=== PATIENT | male | born 1955 | race Caucasian/White ===

== ENCOUNTER → 2022-10-07 11:00 | Outpatient (BNVA) | payer BC, SELFPAY | PROVIDERS: Visit Provider Family Medicine | DX: M25.562 Pain in left knee (principal) | CPT/HCPCS: 73562 ==

== ENCOUNTER 2022-10-25 06:00 | Outpatient (RCR) | payer MEDICARE, OTHER, SELFPAY | END 2022-11-22 23:59 | disposition home or self-care (01) | LOC: GPT 06:00 | PROVIDERS: Visit Provider Family Medicine | DX: M25.569 Pain in unspecified knee (principal) | CPT/HCPCS: 97110; 97112; 97140; 97161 ==

== ENCOUNTER → 2023-02-20 09:13 | Outpatient (BNVA) | payer MEDICARE, OTHER, SELFPAY | PROVIDERS: PCP Family Medicine; Visit Provider Family Medicine | DX: M25.561 Pain in right knee (principal) | CPT/HCPCS: 73562 ==

== ENCOUNTER 2023-03-10 15:37 | Outpatient (CLI) | payer MEDICARE, OTHER, SELFPAY ==
--- NOTE | 2023-03-10 16:00 | MR_ITS ---
WS: [id number] MRI RIGHT KNEE NONCONTRAST TECHNIQUE: Axial PD, coronal PD fat sat, coronal PD, sagittal PD, and sagittal PD fat-sat images obta ined. CLINICAL INFORMATION: M25.361 - Other instability, right knee COMPARISON: None. FINDINGS: Moderate tricompartmental arthritis RIGHT knee. Hypertrophic patella. Distal quadriceps and patella t endons are intact. Prepatellar and infrapatellar soft tissue edema. No significant joint effusion. No rmal ACL and PCL. Mild peripheral extrusion of the lateral meniscus. Tear of the posterior horn later al meniscus at the meniscal root. Blunting of the posterior horn. Mild peripheral extrusion of the la teral meniscus. Medial meniscus appears intact. Moderate chondromalacia patella. No subchondral edema. Normal medial and lateral patellar retinaculum . Tiny joint effusion. Normal lateral collateral ligament. Normal medial collateral ligament. Normal popliteal fossa. Small lobulated popliteal cyst measuring 0.9 x 3.5 cm MR/MR knee RT wo con* [id number] IMPRESSION: 1. Moderate tricompartmental arthritis. 2. Anterior and posterior cruciate ligaments are intact. 3. Tear of the posterior horn lateral meniscus extending to the meniscal root with blunting of the posterior horn. Mild peripheral extrusion of the lateral m eniscus. 4. Moderate chondromalacia patella. 5. Medial and lateral collateral ligaments appear intact. 6. Small lobulated popliteal cyst as described above. Outbridge grading: grade III: partial-thickness cartilage loss with focal ulcer ation
== END 2023-03-10 15:38 | disposition home or self-care (01) ==
PROVIDERS: PCP Family Medicine; Visit Provider Family Medicine
DX: M25.361 Other instability, right knee (principal); M13.861 Other specified arthritis, right knee; S83.281A Other tear of lateral meniscus, current injury, right knee, initial encounter; X58.XXXA Exposure to other specified factors, initial encounter; M22.41 Chondromalacia patellae, right knee; M71.21 Synovial cyst of popliteal space [Baker], right knee
CPT/HCPCS: 73721

== ENCOUNTER → 2023-04-23 12:58 | Outpatient (BNVA) | payer MEDICARE, OTHER, SELFPAY | PROVIDERS: PCP Family Medicine; Referring Provider Family Medicine; Visit Provider Specialist | DX: S83.281A Other tear of lateral meniscus, current injury, right knee, initial encounter; X58.XXXA Exposure to other specified factors, initial encounter | CPT/HCPCS: 73560; 73565; 99204 ==

== ENCOUNTER 2023-05-30 12:14 | Outpatient (CLI) | payer MEDICARE, OTHER, SELFPAY ==
--- NOTE | 2023-05-30 12:29 | MR_ITS ---
WS: [id number] MRI RIGHT knee, post arthrogram. HISTORY: Knee locking and pain for several years. COMPARISON: Prior noncontrast MRI 03/10/2023. Post arthrogram imaging is submitted. There is good contrast distending the joint space. Patellofemoral joint space: Very mild narrowing the patellofemoral joint space. There is no contrast extending into the cartilage. No subluxation or displacement of the patella. Medial compartment: Mild narrowing of the medial compartment. Mild intrasubstance degeneration. No te ars are identified. Lateral compartment: Mild narrowing of the lateral compartment. There is an abnormal shape and config uration of the posterior meniscus. There is a complex tear with blunting of the free edge. Tear exten ds into the peripheral aspect of the meniscus and towards the meniscal root. There is a lobulated sof t tissue component extending superiorly posterior to the femoral condyle which may be a loose fragmen t. There is an additional ovoid loose body measuring 5 x 10 mm. This is within the injected contrast pos terior to the PCL and adjacent to the medial posterior femoral condyle. This was not definitely seen on the prior study. This is probably a loose body and may be a meniscal fragment. No donor site for a n osteochondral fragment identified. IMPRESSION: 1. Complex tear posterior horn lateral meniscus. There is a lobulated component of the meniscus which is inseparable to the main body of meniscus extending posterior superior which may be a loose fragme nt or flipped meniscal segment. 2. Additional loose body surrounded by intra-articular contrast injection measuring 5 x 10 mm posteri or to the PCL and adjacent to the intercondylar notch posteriorly. Meniscal fragment is suspected. No donor site is identified from the cartilage.
--- NOTE | 2023-05-30 13:00 | IR_ITS ---
WS: [id number] RIGHT KNEE ARTHROGRAM (FLUOROSCOPY) RIGHT knee arthrogram was performed in fluoroscopy prior to MRI evaluation. HISTORY: Knee pain, meniscual tear COMPARISON: 05/30/2023 FLUOROSCOPY TIME: 0min [id number] # of spot films: 1 Procedure, risks and complications were explained to the patient. Complications include but not limit ed to bleeding, infection and contrast reaction. Current medications are reviewed. Skin is cleansed with ChloraPrep. Skin is anesthetized with 1% buffered lidocaine. 22-gauge needle is inserted into the patellofemoral joint space. Approximately 40 cc of gadolinium mixture injected wit hout complication. Patient will proceed to CT evaluation immediately. No complications were encountered. Patient is instructed to watch for post procedure infection or ble eding. Patient is also instructed to contact the radiology department with any concerns. IMPRESSION: Uncomplicated RIGHT knee joint injection prior to MRI arthrogram.
== END 2023-05-30 12:15 | disposition home or self-care (01) ==
LOC: RAD 12:15
PROVIDERS: PCP Family Medicine; Visit Provider Specialist
DX: S83.271A Complex tear of lateral meniscus, current injury, right knee, initial encounter (principal); X58.XXXA Exposure to other specified factors, initial encounter; M23.41 Loose body in knee, right knee
CPT/HCPCS: 27369; 73722; 77002

== ENCOUNTER → 2023-06-04 14:08 | Outpatient (BNVA) | payer MEDICARE, OTHER, SELFPAY | PROVIDERS: PCP Family Medicine; Visit Provider Specialist | DX: Z01.818 Encounter for other preprocedural examination (principal); S83.281A Other tear of lateral meniscus, current injury, right knee, initial encounter; M23.41 Loose body in knee, right knee; M25.361 Other instability, right knee; X58.XXXA Exposure to other specified factors, initial encounter | CPT/HCPCS: 99214 ==

== ENCOUNTER 2023-06-23 15:37 | Emergency (ER) | payer MEDICARE, OTHER, SELFPAY ==
[2023-06-23 15:44] VITALS: BP 137/86; PULSE 74; RESP 18; TEMP 36.5; O2SAT 99; BMI 32.5
[2023-06-23 15:49] VITALS: BP 140/78; PULSE 66; RESP 18; O2SAT 97
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
--- NOTE | 2023-06-23 16:02 | PC.PHAR ---
PT STS HE TAKES APPX 23 DIFFERENT SUPPLEMENTS BUT CAN NOT THINK OF ALL OF THEM RIGHT NOW
[2023-06-23] MEDS: ceFAZolin 1,000 MG in sodium chloride 0.9% (plus) 50 ML 100 MG IV (16:06)
[2023-06-23 16:10] LABS: Basophils # 0.1 10^3/uL (0.0-0.1); Basophils % 0.6 %; Eosinophils # 0.1 10^3/uL (0.0-0.8); Hematocrit 43.6 % (37-53); Lymphocytes # 1.6 10^3/uL (0.8-4.8); Lymphocytes % 17.5 %; Mean Corpuscular HGB Conc 35.3 g/dL (30-55); Mean Corpuscular Hemoglobin 32.4 pg (27-33); Mean Corpuscular Volume 91.6 fl (82-101); Mean Platelet Volume 10.4 fL (7.4-10.4); Monocytes # 0.6 10^3/uL (0.2-0.9); Monocytes % 6.4 %; Neutrophils # 6.64 10^3/uL (1.8-7.7); Neutrophils % 74.2 %; Nucleated Red Blood Cells % 0 %; Platelet Count 193 10^3/cmm (157-399); Red Blood Count 4.76 10^6/uL (3.85-5.65); Red Cell Distribution Width 12.7 % (12.1-15.1); White Blood Count 8.95 10^3/uL (3.29-11.43)
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
[2023-06-23 16:49] VITALS: BP 166/101; RESP 18; O2SAT 100
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
[2023-06-23 16:53] LABS: Albumin Level 4.1 g/dL (3.5-5.2); Alkaline Phosphatase 86 U/L (40-130); Blood Urea Nitrogen 12 mg/dL (8-23); Calcium 9.7 mg/dL (8.5-10.5); Carbon Dioxide 26 mmol/L (22-29); Chloride 103 mmol/L (98-107); Globulin 3.4 g/dL (1.3-4.6); Glomerular Filtration Rate 60.6 mL/min (90-130); Glucose 118 mg/dL (65-115); Osmolality Calculated 291 mOsm/kg (285-295); Sodium 140 mmol/L (136-145); Total Bilirubin 0.5 mg/dL (0.15-1.2); Total Protein 7.5 g/dL (6.6-8.7)
[2023-06-23 16:55] LABS: Alanine Aminotransferase 19 U/L (0-41); Anion Gap 15.6 (5-19); Aspartate Amino Transferase 26 U/L (0-40); Potassium 4.6 mmol/L (3.5-5.1)
[2023-06-23] MEDS: iohexol 350 mg/mL 500 mL Btl (per mL) IV (17:28)
[2023-06-23 18:00] VITALS: BP 152/99; RESP 18; O2SAT 100
[2023-06-23 18:59] VITALS: BP 135/88; PULSE 91; RESP 16; O2SAT 97
[2023-06-23 19:15] VITALS: BP 129/79; PULSE 91; RESP 16; O2SAT 97
== END 2023-06-23 19:35 | disposition home or self-care (01) ==
PROVIDERS: Family Medicine; Emergency Provider Emergency Medicine; PCP Family Medicine
DX: S51.011A Laceration without foreign body of right elbow, initial encounter (principal); W55.22XA Struck by cow, initial encounter; E11.9 Type 2 diabetes mellitus without complications; I10 Essential (primary) hypertension
CPT/HCPCS: 12004; 71260; 73080; 73206; 74177; 80053; 81000; 83036; 85025; 96365; 96375; 99285; 99291; J0690; Q9967

== ENCOUNTER → 2023-07-15 09:47 | Outpatient (BNVA) | payer MEDICARE, OTHER, SELFPAY | PROVIDERS: PCP Family Medicine; Referring Provider Nurse Practitioner Family; Visit Provider Surgery | DX: K46.9 Unspecified abdominal hernia without obstruction or gangrene (principal); S30.1XXA Contusion of abdominal wall, initial encounter; K43.9 Ventral hernia without obstruction or gangrene; X58.XXXA Exposure to other specified factors, initial encounter | CPT/HCPCS: 99204 ==

== ENCOUNTER → 2023-07-21 10:17 | Outpatient (BNVA) | payer MEDICARE, OTHER, SELFPAY | PROVIDERS: PCP Family Medicine; Visit Provider Nurse Practitioner | DX: S83.271D Complex tear of lateral meniscus, current injury, right knee, subsequent encounter (principal); M23.41 Loose body in knee, right knee; M25.361 Other instability, right knee; X58.XXXD Exposure to other specified factors, subsequent encounter | CPT/HCPCS: 99214 ==

== ENCOUNTER 2023-07-29 07:42 | Outpatient (CLI) | payer MEDICARE, OTHER, SELFPAY ==
[2023-07-29] MEDS: iohexol 350 mg/mL 500 mL Btl (per mL) PO (07:54)
[2023-07-29] MEDS: iohexol 350 mg/mL 500 mL Btl (per mL) IV (08:58)
--- NOTE | 2023-07-29 09:00 | CT_ITS ---
WS: [id number] CT ABDOMEN AND PELVIS WITH CONTRAST HISTORY: hernia, recent trauma. Persistent bulging. TECHNIQUE: Imaging performed of the abdomen and pelvis with IV contrast. Single phase imaging of the abdomen. Coronal and sagittal reformats are submitted. All CT scans at [facility] use at maxi st one of these dose optimization techniques: automated exposure control; mA and/or kV adjustment per patient size (includes targeted exams where dose is matched to clinical indication); or iterative re construction. IV CONTRAST: Omnipaque 350; 100 mL IV. Oral contrast: Yes. DLP: 836.57 mGy.cm COMPARISON: 06/23/2023 Lower thorax: Lung bases are clear. Heart is normal size. Small hiatal hernia. Liver/biliary system: Normal size with no intrahepatic dilatation. Gallbladder: Normal. No gallstones or wall thickening. No pericholecystic fluid. Pancreas: Normal size pancreas and pancreatic duct. No adjacent inflammation. Spleen: Normal size spleen. No mass or infarct. Adrenal glands: Normal. Right kidney: Normal. Left kidney: Normal. Aorta: Mild atherosclerosis. Lymphadenopathy: None. Free fluid: None. GI tract: Previously described contusion involving the transverse colon has resolved. Abdominal wall: There is a fluid collection extending obliquely through the anterior abdominal wall. Well-defined fluid collection measures 4.7 x 6.4 cm and extends obliquely through the anterior abdomi nal wall by 6.7 cm. This fluid collection is inseparable from the LEFT rectus muscle and does contact the midline linea alba. There is a fat/fluid level present. There is no adjacent inflammation. No co ntact of the peritoneal cavity is identified. This is at the site of the prior subcutaneous trauma. Pelvis: No free fluid or adenopathy within the pelvis. Bones: No destructive process. IMPRESSION: 1. Well encapsulated fluid collection with fat-fluid layer in the anterior abdominal wall abuts the LEFT rectus muscle. Fluid collection measures 4.7 x 6.4 x 6.7 cm. This is probably a sterile fluid co llection associated with encapsulated fat necrosis at the site of the prior trauma. No connection to the peritoneal cavity is evident. 2. Interval resolution of the contusion injury involving the transverse colon.
== END 2023-07-29 07:43 | disposition home or self-care (01) ==
LOC: RAD 07:42
PROVIDERS: PCP Family Medicine; Visit Provider Surgery
DX: K43.9 Ventral hernia without obstruction or gangrene (principal); K46.9 Unspecified abdominal hernia without obstruction or gangrene; S30.1XXA Contusion of abdominal wall, initial encounter; X58.XXXA Exposure to other specified factors, initial encounter
CPT/HCPCS: 74177; Q9967

== ENCOUNTER → 2023-08-01 08:58 | Outpatient (BNVA) | payer MEDICARE, OTHER, SELFPAY | PROVIDERS: PCP Family Medicine; Visit Provider Surgery | DX: Z09 Encounter for follow-up examination after completed treatment for conditions other than malignant neoplasm (principal) | CPT/HCPCS: 99213 ==

== ENCOUNTER → 2023-08-26 12:49 | Outpatient (BNVA) | payer MEDICARE, OTHER, SELFPAY | PROVIDERS: PCP Family Medicine; Visit Provider Nurse Practitioner | DX: Z01.818 Encounter for other preprocedural examination (principal); S83.271D Complex tear of lateral meniscus, current injury, right knee, subsequent encounter; M23.41 Loose body in knee, right knee; M25.361 Other instability, right knee; X58.XXXD Exposure to other specified factors, subsequent encounter | CPT/HCPCS: 80053; 85025; 99214 ==

== ENCOUNTER 2023-09-02 09:43 | Day surgery (SDC) | payer MEDICARE, OTHER, SELFPAY ==
[2023-09-02] VITALS (10 sets, daily range): BP systolic 132–164; BP diastolic 89–110; PULSE 64–72; RESP 10–24; TEMP 35.9–36.6; O2SAT 93–100; BMI 32.8
--- NOTE | 2023-09-02 10:01 | PC.NURSE ---
\pt. stated no pork or meds derived from pork for protestant beliefs. Gabapentin and celebrex both alerted to pork dirived so both canceled. pharmacy verified.
[2023-09-02] MEDS: acetaminophen 1,000 MG/100 ML PIGGYBACK 400 MG IV (10:30)
--- NOTE | 2023-09-02 11:15 | P.ANESASSM_ITS ---
Pre-Anesthetic Assessment Height/Weight: Height 1.83 m Weight 109.769 kg Temp Pulse Resp BP Pulse Ox O2 Del Method 96.7 F L 71 18 164/110 97 Room Air 09/02/23 10:18 09/02/23 10:18 09/02/23 10:18 09/02/23 10:18 09/02/23 10:18 09/02/23 10:18 Operation Date: 09/02/23 11:25 Proposed Procedures p Knee Arthroscopy w/ Menisectomy W/ Possible debridement(Right) - Kathryn Mesa MD Was Beta Roxann taken within 24 hours: N/A Was Clonidine taken within 24 hours: N/A Last intake: Intake Last Liquid Date 09/01/23 Last Liquid Time 19:00 Last Solid Date 09/01/23 Last Solid Time 19:00 Social No tobacco Exam alert and oriented x 3 Airway Submandibular: within normal limits Cervical ROM: within normal limits Mallampati: Class II History/ROS No significant history except as noted and No significant complaints CV/HEM Hypertension Metabolic Diabetes Mellitus T2DM Diet controlled Anesthetic Plan ASA status: 2 Anesthesia: General Risk of > 500 ml blood loss (7ml/kg in children): No Medications/Allergies Home Medications Medication Instructions Recorded Confirmed Last Taken Type amlodipine 5 mg-benazepril 20 mg 1 cap PO DAILY #90 caps 10/07/22 09/01/23 09/01/23 Rx capsule Allergies Allergy/AdvReac Type Severity Reaction Status Date / Time pork derived (porcine) Allergy Unknown Unknown Verified 09/02/23 10:07 Pork/Porcine Containing Allergy episcopal Verified 09/02/23 10:07 Products preferance [facility] Anesthesia Medical History Knee pain Diabetes Hypertension Social History Smoking and tobacco/nicotine status: never used tobacco/nicotine Alcohol intake: never Data Anesthesia Cardiac Studies: No Data to Display
--- NOTE | 2023-09-02 11:43 | P.HPUD_ITS ---
Surgery/Procedure H&P Update DATE OF PROCEDURE: September 02, 2023 DATE H&P PERFORMED: 08/26/23 H&P UPDATE INFORMATION: I have reviewed H&P completed within last 30 days, I have examined patient prior to procedure, No changes to prior documentation and H&P is in [facility] EMR on date indicated PRIMARY INDICATION FOR PROCEDURE: MRI 05/30/2023 IMPRESSION: 1. Complex tear posterior horn lateral meniscus. There is a lobulated component of the meniscus which is inseparable to the main body of meniscus extending posterior superior which may be a loose fragment or flipped meniscal segment. 2. Additional loose body surrounded by intra-articular contrast injection measuring 5 x 10 mm posterior to the PCL and adjacent to the intercondylar notch posteriorly. Meniscal fragment is suspected. No donor site is identified from the cartilage. PLANNED PROCEDURE: Operation Date: 09/02/23 11:25 Proposed Procedures p Knee Arthroscopy w/ Menisectomy W/ Possible debridement(Right) - Kathryn Mesa MD
[2023-09-02] MEDS: ceFAZolin 2,000 MG in sodium chloride 0.9% (plus) 50 ML 100 MG IV (13:16)
[2023-09-02] MEDS: morphine 4 mg/mL SDV 1 mL 8 MG XX (14:40)
[2023-09-02] MEDS: ROPivacaine 0.5% SDV 30 mL 150 MG INJECTION (14:40)
--- NOTE | 2023-09-02 15:24 | PM.OP ---
Operative Report Date of procedure: September 02, 2023 Pre-op diagnosis: Right knee lateral meniscal tear with loose body Post-op diagnosis: Right knee complex lateral meniscus tear with inner rim medial meniscal tear as well as loose body and primary osteoarthritis Procedure done: Right arthroscopic knee surgery with partial medial and lateral meniscectomies, chondroplasty, and debridement Specimens removed/disposition: Meniscal fragments disposed of Surgeon: Kathryn Mesa MD Vp Client Services: None Anesthesia: General (Per LMA, ASA 2) Estimated blood loss (mL): 5 Tourniquet time (min): 38 (At 250 mmHg) IV fluids (mL): 400 Complications: None Findings: Two large meniscal fragments as well as complex lateral meniscal tear and inner rim medial meniscal tear Condition: stable Disposition: PACU (Then return to same-day surgery for discharge to home) Brief History: This 68-year-old gentleman presented initially to my office for right knee pain. The pain was intermittent and occurred every 2 to 3 days. He had pain with certain activities and certain movements. He also complained of popping, catching, buckling, and giving way at times. On May 30, 2023, the patient had an MRI arthrogram which demonstrated complex tearing of the posterior lateral meniscus. There was also felt to be a loose fragment of meniscus and an additional loose body which was free-floating. Patient wished to proceed with arthroscopic intervention. Initially, surgery was scheduled for late 2022, however, the patient was working with an injured bull. The bull charged him and caught him in the abdomen and chest. Therefore, the patient's surgical procedure was delayed until this could be resolved. He presents today for arthroscopic knee surgery. Procedure: Patient was brought to the operating theater and after undergoing adequate general anesthesia per LMA, the patient's right lower extremity was prepped and draped in usual fashion utilizing DuraPrep. A tourniquet was placed high on the leg prior to prepping and draping. The tourniquet was elevated shortly after commencement of the surgical procedure to 250 mmHg. Total tourniquet time was 38 minutes. The tourniquet was elevated secondary to bleeding once the surgical procedure had begun. Prior to commencement of the surgical procedure, a surgical pause was performed. At the time of the surgical pause, we identified the site and side of surgery. We also confirm the patient's identity and appropriate and timely administration of preoperative antibiotics. Preoperative surgical markings were also visualized at this time. Standard arthroscopic portals were utilized including superolateral, inferomedial, and inferolateral portals. The examination commenced in the suprapatellar pouch area where the patient was noted to have chondromalacia of the patella with synovitis in the area. The arthroscope was then passed in the medial compartment where there was noted to be inner rim tearing of the posterior portion of the medial meniscus. There was also chondromalacia of the medial femoral condyle which was grade 2-3. There was synovitis anteriorly in the medial compartment as well. The arthroscope was then passed across the notch area where anterior cruciate ligament was visualized and found to be intact. The scope was passed into the lateral compartment with the knee in a [id number] position. Visualization was difficult secondary to significant synovitis and a displaced fragment of the meniscus into the anterior portion of the knee. Lateral meniscus was noted to have a tear involving nearly the entire posterior horn. This was addressed with a combination of basket forceps, a grasper, intra-articular shaver, and heat wand. There were 2 large fragments of meniscus which were separate from the meniscus upon entry. One of them was locked up in the posterior aspect of the knee behind the posterior cruciate ligament which was consistent with findings on the MRI arthrogram. The meniscus was shaved and basket forcep was utilized. The heat wand was used to further smooth the meniscus. Popliteus was visualized. Further palpation within the lateral compartment demonstrated no further pathology. Once lateral meniscus had been thus prepared it was palpated and found to be intact and not displaceable into the knee joint. Scope was then returned to the medial compartment where the inner rim of the medial meniscus was addressed with the intra-articular heat wand. The meniscus was palpated and found to be not displaceable into the knee joint. Chondroplasty was performed of the medial femoral condyle. The arthroscope was then returned to the patellofemoral joint where a synovectomy was performed. This synovectomy involved use of the intra-articular shaver as well as the heat wand. Once the patellofemoral joint had been addressed, the scope was passed back through the knee compartments to evaluate for other abnormalities. Finding none, attention was directed to closure. The knee was copiously irrigated and suctioned dry. Following this, each portal was closed with a simple suture followed by Dermabond and Tegaderm. Additionally, the knee was injected with 20 mL of half percent ropivacaine and 8 mg of morphine. Additional 10 mL of ropivacaine was placed about the portals. Sterile dressing was placed consisting of the Tegaderm followed by the Yohan wrap. Patient was returned to Recovery Room in satisfactory condition where he will be discharged home to follow-up with me in the office as scheduled. There were no complications and no specimens. Related Problem List Diagnoses (1) Tear of lateral meniscus of right knee: (2) Tear of medial meniscus of right knee: (3) Primary osteoarthritis of right knee:
--- NOTE | 2023-09-02 16:55 | ANE.PACU2 ---
Inpatient post-anesthesia follow up: Airway intact: Yes Vital signs: Temperature 97.8 F Pulse Rate 69 Respiratory Rate 18 Blood Pressure 160/99 Pulse Oximetry 98 Oxygen Delivery Me thod Room Air Oxygen Flow Rate 8 Fraction of Inspir ed Oxygen Hydration adequate: Yes Nausea and vomiting: No Pain level: 3 Mental status: Baseline
== END 2023-09-02 16:11 | disposition home or self-care (01) ==
PROVIDERS: PCP Family Medicine; Visit Provider Specialist
PROC: (CPT 29870; principal; 2023-09-02 11:25)
DX: S83.281A Other tear of lateral meniscus, current injury, right knee, initial encounter (principal); X58.XXXA Exposure to other specified factors, initial encounter; M23.41 Loose body in knee, right knee; I10 Essential (primary) hypertension; E11.9 Type 2 diabetes mellitus without complications
CPT/HCPCS: 29880; J0131; J0690; J1100; J1885; J2270; J2405; J2704; J2795; J3010

== ENCOUNTER → 2023-09-23 09:46 | Outpatient (BNVA) | payer MEDICARE, OTHER, SELFPAY | PROVIDERS: PCP Family Medicine; Visit Provider Nurse Practitioner Family | DX: M89.8X2 Other specified disorders of bone, upper arm (principal); M25.511 Pain in right shoulder | CPT/HCPCS: 73060 ==

== ENCOUNTER → 2023-09-24 10:44 | Outpatient (BNVA) | payer MEDICARE, OTHER, SELFPAY | PROVIDERS: PCP Family Medicine; Visit Provider Nurse Practitioner | DX: Z98.890 Other specified postprocedural states (principal); S83.271D Complex tear of lateral meniscus, current injury, right knee, subsequent encounter; X58.XXXD Exposure to other specified factors, subsequent encounter | CPT/HCPCS: 99024 ==

== ENCOUNTER → 2023-10-28 09:49 | Outpatient (BNVA) | payer MEDICARE, OTHER, SELFPAY | PROVIDERS: Visit Provider Surgery | DX: S30.1XXA Contusion of abdominal wall, initial encounter (principal); X58.XXXA Exposure to other specified factors, initial encounter | CPT/HCPCS: 99214 ==

== ENCOUNTER 2023-10-29 06:00 | Outpatient (RCR) | payer MEDICARE, OTHER, SELFPAY | END 2023-11-23 23:59 | disposition home or self-care (01) | LOC: GPT 06:00 | PROVIDERS: Visit Provider Nurse Practitioner Family | DX: S46.111D Strain of muscle, fascia and tendon of long head of biceps, right arm, subsequent encounter (principal); X58.XXXD Exposure to other specified factors, subsequent encounter | CPT/HCPCS: 97110; 97112; 97140; 97162 ==

== ENCOUNTER 2023-11-24 06:00 | Outpatient (RCR) | payer MEDICARE, OTHER, SELFPAY | END 2023-12-23 23:59 | disposition home or self-care (01) | LOC: GPT 06:00 | PROVIDERS: Visit Provider Nurse Practitioner Family | DX: S46.111D Strain of muscle, fascia and tendon of long head of biceps, right arm, subsequent encounter (principal); X58.XXXD Exposure to other specified factors, subsequent encounter | CPT/HCPCS: 97110 ==

== ENCOUNTER 2023-12-17 11:49 | Outpatient (CLI) | payer MEDICARE, OTHER, SELFPAY ==
--- NOTE | 2023-12-17 12:15 | MR_ITS ---
WS: [id number] MRI OF THE HUMERUS WITHOUT GADOLINIUM ENHANCEMENT. INDICATION: Muscle strain TECHNIQUE: Axial T2, axial PD, coronal STIR, coronal T1, and sagittal STIR imaging FINDINGS: Moderate degenerative arthritis AC joint with mild edema. Subacromial spurring. Narrowing o f the subacromial space. Moderate degenerative narrowing glenohumeral articulation. High-grade comple te tear distal supraspinatus. Supraspinatus tendon appears retracted to the glenohumeral joint. Infra spinatus appears intact. Small intrasubstance tear in the infraspinatus musculotendinous junction. Normal teres minor. Chronic appearing tear of the transverse ligament subscapularis. Medial dislocati on of the biceps tendon from the bicipital groove. Subcoracoid effusion. Probable Hill-Sachs lesion. No acute appearing edema. Normal bone marrow signal in the humerus. No acute fractures. Fluid and michael ma along the biceps tendon sheath. Suspected partial tear of the intra-articular biceps tendon althou gh incompletely evaluated on the humerus study. Distal biceps tendon is not included on this study. Recommend elbow MRI if concern for distal biceps brachii tear. IMPRESSION: 1. Moderate joint arthritis of the AC joint with narrowing of the subacromial space. Subacromial sub deltoid fluid. 2. High-grade complete tear of the supraspinatus with retraction to the level of the glenohumeral yulissa int. 3. Tear of the transverse ligament subscapularis with medial dislocation of the biceps tendon from t he bicipital groove. Fluid along the biceps tendon sheath. If distal biceps brachii pain recommend MR I of the elbow. 4. Probable small Hill-Sachs lesion although dedicated shoulder MRI not performed. 5. Increased signal intra-articular biceps tendon suggestive of partial tear. This is incompletely evaluated and recommend shoulder MRI 6. Recommend further evaluation with dedicated shoulder MRI.
== END 2023-12-17 11:50 | disposition home or self-care (01) ==
PROVIDERS: PCP Family Medicine; Visit Provider Nurse Practitioner Family
DX: S46.211A Strain of muscle, fascia and tendon of other parts of biceps, right arm, initial encounter (principal); M75.121 Complete rotator cuff tear or rupture of right shoulder, not specified as traumatic; M19.011 Primary osteoarthritis, right shoulder; W19.XXXA Unspecified fall, initial encounter
CPT/HCPCS: 73218

== ENCOUNTER → 2024-02-20 10:10 | Outpatient (BNVA) | payer MEDICARE, OTHER, SELFPAY | PROVIDERS: PCP Family Medicine; Referring Provider Nurse Practitioner Family; Visit Provider Nurse Practitioner | DX: M19.011 Primary osteoarthritis, right shoulder; M25.511 Pain in right shoulder; G89.29 Other chronic pain | CPT/HCPCS: 99214 ==

== ENCOUNTER 2024-04-05 10:15 | Outpatient (CLI) | payer MEDICARE, OTHER, SELFPAY ==
--- NOTE | 2024-04-05 11:00 | MR_ITS ---
WS: [id number] MRI RIGHT SHOULDER HISTORY: shoulder pain COMPARISON: 12/17/2023 TECHNIQUE: Multiplanar sequences of the shoulder joint are submitted. Moderate AC joint arthropathy. Distal clavicular and adjacent acromial osteophytes encroaching upon t he myotendinous portion of the supraspinatus. Moderate subacromial impingement upon the rotator cuff. No os acromion. Reidentified is an empty bicipital groove with the biceps tendon being medially disl ocated. Complete tear of the supraspinatus tendon. The tendon is retracted to the superior humeral head. Ther e is additional intrasubstance tear with fluid extending along the tendon into the muscle body. There is a fluid gap distally. Mild atrophy of the supraspinatus muscle. Tiny insertion site tear of the i nfraspinatus tendon. Subscapularis tendon demonstrates mild atrophy distally and intrasubstance degen eration. There is a small amount of fluid between the dislocated biceps tendon and the subscapularis tendon. There is a large amount of fluid in the biceps tendon sheath. Mild surface fraying and irregularity o f the posterolateral humeral head. No definite labral tear. Small subscapularis recess bursal distent ion. MR/MR shoulder RT wo con* [id number] IMPRESSION: 1. Medially dislocated biceps tendon. Increased fluid in the biceps tendon she ath. These findings were noted on the prior examination also. Biceps tendon is medially dislocated. 2. Complete tear of the supraspinatus tendon with retraction to the superior h umeral head. 3. Mild subacromial impingement. 4. Moderate AC joint arthropathy. 5. Insertion site tear of the infraspinatus tendon. 6. Small caliber but intact distal subscapularis tendon. 7. Mild supraspinatus atrophy.
== END 2024-04-05 10:16 | disposition home or self-care (01) ==
LOC: RAD 10:16
PROVIDERS: PCP Family Medicine; Visit Provider Nurse Practitioner
DX: S46.111A Strain of muscle, fascia and tendon of long head of biceps, right arm, initial encounter (principal); M75.122 Complete rotator cuff tear or rupture of left shoulder, not specified as traumatic; M19.011 Primary osteoarthritis, right shoulder
CPT/HCPCS: 73221

== ENCOUNTER → 2024-04-14 16:17 | Outpatient (BNVA) | payer MEDICARE, OTHER, SELFPAY | PROVIDERS: PCP Family Medicine; Visit Provider Nurse Practitioner | DX: M25.511 Pain in right shoulder (principal); G89.29 Other chronic pain | CPT/HCPCS: 36415; 80053; 81003; 81015; 85025 ==

== ENCOUNTER → 2024-05-04 08:57 | Outpatient (BNVA) | payer MEDICARE, OTHER, SELFPAY | PROVIDERS: PCP Family Medicine; Visit Provider Family Medicine | DX: Z01.818 Encounter for other preprocedural examination (principal); R00.1 Bradycardia, unspecified | CPT/HCPCS: 93005 ==

== ENCOUNTER 2024-05-18 09:32 | Day surgery (SDC) | payer MEDICARE, OTHER, SELFPAY ==
[2024-05-18] VITALS (10 sets, daily range): BP systolic 107–149; BP diastolic 69–94; PULSE 57–74; RESP 18; TEMP 36.1–36.5; O2SAT 92–98; BMI 31.8
[2024-05-18] MEDS: acetaminophen 1,000 MG/100 ML PIGGYBACK 400 MG IV (10:28)
[2024-05-18] MEDS: sodium chloride 0.9% 1,000 ML 30 ML IV (10:28)
--- NOTE | 2024-05-18 10:42 | ANES.PREANE2 ---
Pre-Anesthetic Assessment Height/Weight: Height 1.83 m Weight 106.594 kg Temp Pulse Resp BP Pulse Ox O2 Del Method 97.5 F L 57 L 18 149/92 98 Room Air 05/18/24 09:52 05/18/24 09:52 05/18/24 09:52 05/18/24 09:52 05/18/24 09:52 05/18/24 09:52 Operation Date: 05/18/24 11:20 Proposed Procedures p Rotator Cuff Repair - Open(Right) - Kathryn Mesa MD s Distal Clavicle Resection(Right) - Kathryn Mesa MD s Debridement Upper Extremity(Right) - Kathryn Mesa MD Familial anesthetic complications: None Was Beta Roxann taken within 24 hours: N/A Was Clonidine taken within 24 hours: N/A Last intake: Intake Last Liquid Date 05/17/24 Last Liquid Time 21:00 Last Solid Date 05/17/24 Last Solid Time 20:30 Social No alcohol and No tobacco Exam alert, oriented x 3, clear to auscultation bilaterally and regular rate & rhythm CV/HEM Hypertension Metabolic Diabetes Mellitus Anesthetic Plan ASA status: 3 Anesthesia: General and Regional (specify below) Risk of > 500 ml blood loss (7ml/kg in children): No Medications/Allergies Home Medications Medication Instructions Recorded Confirmed Last Taken Type amlodipine 5 mg-benazepril 20 mg 1 cap PO DAILY #90 caps 04/27/24 05/17/24 05/17/24 Rx capsule Allergies Allergy/AdvReac Type Severity Reaction Status Date / Time pork derived (porcine) Allergy Unknown Unknown Verified 05/17/24 11:48 Pork/Porcine Containing Allergy restoration Verified 05/17/24 11:48 Products preferance Current Medications Generic Name Dose Route Start Last Admin Trade Name Freq PRN Reason Stop Dose Admin Sodium Chloride 1,000 mls @ 30 mls/hr 05/18/24 09:45 05/18/24 10:28 Sodium Chloride 0.9% IV 05/19/24 09:44 30 mls/hr .Q24H SANTY Administration PFSH Anesthesia Medical History Complete rotator cuff tear or rupture of right shoulder, not specified as traumatic Acromioclavicular joint arthritis Chronic right shoulder pain Knee pain Diabetes Hypertension Surgical History Status post meniscectomy Date of Surgery: 09/02/23 Surgery: Right arthroscopic knee surgery with partial medial and lateral meniscectomies, chondroplasty, and debridement. Surgeon: Dr. Bonita MD Social History Smoking and tobacco/nicotine status: never used tobacco/nicotine Alcohol intake: never Data Anesthesia Cardiac Studies: No Data to Display
--- NOTE | 2024-05-18 10:42 | SUR.PREOP ---
1033-timeout completed at bedside in OPS with Dr Alcala for an auxiliary block using Ropivicaine 0.5% 20ml injected
--- NOTE | 2024-05-18 10:43 | ANES.PROC ---
Anesthesia Procedures Procedure/Date: 05/18/24 Nerve Block ^: Nerve Block 1: Main Anesthesia: general anesthesia Time Out Performed: Yes Consent: requested by attending/covering physician, from patient, from other, risks and benefits reviewed and patient agrees to proceed Nerve block location: interscalene (R) Anesthesia monitors applied: pulse oximetry, EKG, BP cuff and oxygen Nerve block position: supine Anesthetic Used: ropivicaine 0.5% (20 ml) and with decadron (4 mg) Ultrasound used to: recognize landmarks, visualize and ID brachial plexus, in supraclavicular region and visualize and ID interscalene groove Nerve Stimulator Used?: No Interscalene/Femoral BLK: 2 stimuplex 22 g needle used for position and inplane approach, visualize local anesthetic spread and no vascular puncture identified Injection: neg aspiration of heme Patient Tolerated Procedure: well Complications: none
--- NOTE | 2024-05-18 10:47 | SUR.PREOP ---
correction to previous note block was to right interscalen
--- NOTE | 2024-05-18 10:57 | W.PM.OPSUD ---
Surgery/Procedure H&P Update DATE OF PROCEDURE: May 18, 2024 DATE H&P PERFORMED: 04/14/24 H&P UPDATE INFORMATION: I have reviewed H&P completed within last 30 days, I have examined patient prior to procedure, No changes to prior documentation and H&P is in [facility] EMR on date indicated PLANNED PROCEDURE: Operation Date: 05/18/24 11:20 Proposed Procedures p Rotator Cuff Repair - Open(Right) - Kathryn Mesa MD s Distal Clavicle Resection(Right) - Kathryn Mesa MD s Debridement Upper Extremity(Right) - Kathryn Mesa MD Related Problem List Diagnoses (1) Primary osteoarthritis of right knee: (2) Varus deformity, not elsewhere classified, right knee:
--- NOTE | 2024-05-18 10:59 | P.HPUD_ITS ---
Surgery/Procedure H&P Update DATE OF PROCEDURE: May 18, 2024 DATE H&P PERFORMED: 04/14/24 H&P UPDATE INFORMATION: I have reviewed H&P completed within last 30 days, I have examined patient prior to procedure, No changes to prior documentation and H&P is in [facility] [place] [place] EMR on date indicated PLANNED PROCEDURE: Operation Date: 05/18/24 11:20 Proposed Procedures p Rotator Cuff Repair - Open(Right) - MD tate Concepcion Distal Clavicle Resection(Right) - MD tate Concepcion Debridement Upper Extremity(Right) - Kathryn Mesa MD Related Problem List Diagnoses (1) Complete rotator cuff tear or rupture of right shoulder, not specified as traumatic: Qualifiers: Rotator cuff tear trauma status: nontraumatic Qualified Code(s): M75.121 - Complete rotator cuff tear or rupture of right shoulder, not specified as traumatic (2) Acromioclavicular joint arthritis: Qualifiers: Laterality: right Qualified Code(s): M19.011 - Primary osteoarthritis, right shoulder (3) Supraspinatus tendon tear: Qualifiers: Laterality: right Qualified Code(s): M75.101 - Unspecified rotator cuff tear or rupture of right shoulder, not specified as traumatic (4) Impingement syndrome of right shoulder:
[2024-05-18] MEDS: ceFAZolin 2,000 mg SDV 2000 MG IVP (11:24)
[2024-05-18] MEDS: ceFAZolin 1,000 mg SDV 1000 MG IRRIGATION (11:59)
--- NOTE | 2024-05-18 13:25 | PM.OP ---
Operative Report Date of procedure: May 18, 2024 Pre-op diagnosis: Right shoulder rotator cuff tear with impingement and acromioclavicular joint osteoarthritis Post-op diagnosis: Right shoulder rotator cuff tear with impingement and acromioclavicular joint osteoarthritis Post-op findings: Large rotator cuff tear with thinning. Laminated tear in a vertical position. Procedure done: Open right shoulder rotator cuff repair, primary, with acromioplasty and distal clavicle resection as well as bursectomy Implants: None Specimens removed/disposition: None Surgeon: Kathryn Mesa MD Medical Transcriber: Katie Salazar Medical Transcriber: Services were required for positioning, retraction during the surgical procedure, exposure, and closure Anesthesia: General (Intubated, ASA 3) Estimated blood loss (mL): 25 IV fluids (mL): 700 Urine output (mL): 0 (No Jaimes) Complications: None Findings: Large rotator cuff tear with complete loss of rotator cuff over the superior humeral head. Significant bursitis along with impingement. Expansion of the distal clavicle and loss of joint space. Condition: stable Disposition: PACU (Then return to same-day surgery for discharge to home) Brief History: This 68-year-old gentleman presents today for open rotator cuff repair with acromioplasty and distal clavicle resection. He was having significant limitations in his activities of daily living as well as increasing pain and decreasing range of motion. Additionally, he had significant weakness to this arm. MRI demonstrated subacromial impingement with a complete tear of the supraspinatus tendon and retraction to the superior humeral head. There was also an insertion site tear of the infraspinatus tendon and a displaced biceps tendon. After discussion in the office and progressive symptoms, the patient wished to proceed with operative intervention. Risks and complications were discussed with him preoperatively, and consents were signed. Procedure: The patient was brought to the operating theater and underwent general intubated anesthesia, ASA 3 which was well-tolerated. The patient was placed in a beachchair position and subsequently the right upper extremity was prepped and draped in the usual fashion utilizing DuraPrep. The arm was draped free. A surgical pause was performed prior to commencement of the surgical procedure. At the time of the surgical pause, we confirmed the site and side of surgery as well as administration of appropriate preoperative antibiotics Ancef 2 g. MRI was also reviewed at that time. Findings on the MRI included moderate acromioclavicular joint arthropathy with subacromial impingement and complete tear of the supraspinatus tendon to the superior humeral head as well as the infraspinatus at the insertion. Following the surgical pause, an incision was made at approximately the level of the acromioclavicular joint extending across the anterolateral corner of the acromion and distally as necessary. Care was taken to avoid injury to the axillary nerve by limiting the distal extent of the incision. Dissection continued through skin and soft tissues using a scalpel. Hemostasis was obtained using electrocautery. Soft tissues were elevated off the acromion. An acromioplasty was then accomplished using a combination of a saw and a power rasp. With this, we were able to remove compression caused by the acromion. The rotator cuff was then evaluated to look for tears. There was a large tear centering over the superior humeral head consistent with MRI findings. This was a complete tear of the supraspinatus tendon which also extended into the infraspinatus. There was lamination of the remaining rotator cuff as well. Bursa was excised of the rotator cuff could be evaluated. The edges were freshened using a scalpel. After evaluation, it was elected to attempt a primary repair. The tear orientation was vertical. Multiple sutures were placed into the rotator cuff to effect this repair. Repair was accomplished using 0 Ethibond. The tear orientation was noted to be vertical. After the rotator cuff had been thus addressed, the shoulder was placed through further range of motion to assure there was no further evidence of rotator cuff tear. The acromioclavicular joint was exposed. A saw was then used to resect the distal clavicle without difficulty. The undersurface of the clavicle was palpated and was slightly further debrided. A power rasp was used to further smooth the area. When this was felt to be adequately resected, the wound was irrigated. Attention was then directed to closure. The wound was irrigated and closure was accomplished with 0 Vicryl in the capsular tissues overlying the acromioclavicular joint area as well as over the acromion and down into the deltoid muscle. 2-0 Monocryl was used to close the subcutaneous tissues followed by 4-0 Monocryl subcuticular closure. This was followed by Dermabond, Steri-Strips, and OpSite. The patient was placed in a slingshot style sling and was returned to the recovery room in satisfactory condition. The patient will be discharged to home to follow-up in the office as scheduled. There were no complications and no specimens. Related Problem List Diagnoses (1) Complete rotator cuff tear or rupture of right shoulder, not specified as traumatic: (2) Impingement syndrome of right shoulder: (3) Acromioclavicular joint arthritis: (4) Supraspinatus tendon tear:
--- NOTE | 2024-05-18 14:40 | ANE.PACU2 ---
Inpatient post-anesthesia follow up: Airway intact: Yes Vital signs: Temperature 97 F Pulse Rate 61 Respiratory Rate 18 Blood Pressure 117/94 Pulse Oximetry 94 Oxygen Delivery Me thod Room Air Oxygen Flow Rate Fraction of Inspir ed Oxygen Hydration adequate: Yes Nausea and vomiting: No Pain level: 1 Mental status: Baseline
== END 2024-05-18 14:43 | disposition home or self-care (01) ==
PROVIDERS: PCP Family Medicine; Visit Provider Specialist
PROC: (CPT 23120; principal; 2024-05-18 11:00)
PROC: (CPT 23120; 2024-05-18 11:00)
DX: M75.121 Complete rotator cuff tear or rupture of right shoulder, not specified as traumatic (principal); M25.811 Other specified joint disorders, right shoulder; M19.011 Primary osteoarthritis, right shoulder; I10 Essential (primary) hypertension; E11.9 Type 2 diabetes mellitus without complications; G89.29 Other chronic pain
CPT/HCPCS: 23120; 23420; J0131; J0330; J0690; J1100; J2405; J2704; J2710; J2795; J3010; J3490; J7030

== ENCOUNTER → 2024-06-02 11:06 | Outpatient (BNVA) | payer MEDICARE, OTHER, SELFPAY | PROVIDERS: PCP Family Medicine; Visit Provider Nurse Practitioner | DX: Z98.890 Other specified postprocedural states (principal) | CPT/HCPCS: 99024 ==

== ENCOUNTER → 2024-07-05 08:49 | Outpatient (BNVA) | payer MEDICARE, OTHER, SELFPAY | PROVIDERS: PCP Family Medicine; Visit Provider Nurse Practitioner | DX: Z98.890 Other specified postprocedural states (principal); M75.41 Impingement syndrome of right shoulder; M19.011 Primary osteoarthritis, right shoulder | CPT/HCPCS: 73030; 99024 ==

== ENCOUNTER 2024-07-13 06:00 | Outpatient (RCR) | payer MEDICARE, OTHER, SELFPAY | END 2024-07-24 23:59 | disposition home or self-care (01) | LOC: GPT 06:00 | PROVIDERS: Visit Provider Nurse Practitioner | DX: M75.41 Impingement syndrome of right shoulder (principal); Z98.890 Other specified postprocedural states | CPT/HCPCS: 97110; 97112; 97140; 97161 ==

== ENCOUNTER 2024-07-25 06:00 | Outpatient (RCR) | payer MEDICARE, SELFPAY | END 2024-08-24 23:59 | disposition home or self-care (01) | LOC: GPT 06:00 | PROVIDERS: Visit Provider Nurse Practitioner | DX: Z98.890 Other specified postprocedural states (principal); M75.41 Impingement syndrome of right shoulder | CPT/HCPCS: 97110; 97112; 97140; 97164; 97530 ==

== ENCOUNTER → 2024-08-12 14:32 | Outpatient (BNVA) | payer MEDICARE, SELFPAY | PROVIDERS: PCP Family Medicine; Visit Provider Nurse Practitioner | DX: Z98.890 Other specified postprocedural states (principal); M75.41 Impingement syndrome of right shoulder; M19.011 Primary osteoarthritis, right shoulder | CPT/HCPCS: 99024 ==

== ENCOUNTER 2024-08-25 06:00 | Outpatient (RCR) | payer MEDICARE, SELFPAY | END 2024-08-31 23:59 | disposition home or self-care (01) | LOC: GPT 06:00 | PROVIDERS: PCP Family Medicine; Visit Provider Nurse Practitioner | DX: M75.41 Impingement syndrome of right shoulder (principal); Z98.890 Other specified postprocedural states | CPT/HCPCS: 97110; 97112 ==

== ENCOUNTER → 2025-01-26 12:14 | Outpatient (BNVA) | payer MEDICARE, OTHER, SELFPAY | PROVIDERS: PCP Family Medicine; Visit Provider Family Medicine | DX: I10 Essential (primary) hypertension (principal); E11.9 Type 2 diabetes mellitus without complications; E55.9 Vitamin D deficiency, unspecified; Z12.5 Encounter for screening for malignant neoplasm of prostate | CPT/HCPCS: 80053; 80061; 82306; 84443; G0103 ==

== ENCOUNTER → 2025-07-04 10:00 | Outpatient (BNVA) | payer MEDICARE, OTHER, SELFPAY | PROVIDERS: PCP Family Medicine; Visit Provider Family Medicine | DX: E11.9 Type 2 diabetes mellitus without complications (principal) | CPT/HCPCS: 83036 ==